=== PATIENT | male | born 1985 | race Caucasian/White ===

== ENCOUNTER 2017-06-02 23:55 | Emergency (ER) | payer BC ==
[~2017-06-02 23:55] MED LIST: CEP500 PO; FAM20 PO; IBU600 PO; KET10 PO; LOR5/325 PO; OND4 PO; PER PO; TAM4 PO; [UNRECOGNIZED DRUG - CODE] PO
--- NOTE | 2017-06-02 23:57 | ER Report ---
History and Physical Time Seen By MD: 23:57 HPI/ROS CHIEF COMPLAINT: Right flank pain HISTORY OF PRESENT ILLNESS: 31-year-old male presents ambulatory ER complaining of right flank pain since 9 PM. He's had severe nausea but no vomiting. He notes he's had some hematuria since noon yesterday. Patient has a distant history of kidney stones, status post cystoscopy by Dr. Rahman in 2012. He's done relatively well over the last 4 years. Patient notes no fevers. REVIEW OF SYSTEMS: Respiratory: No cough, no dyspnea. Cardiovascular: No chest pain, no palpitations. Gastrointestinal: As above Musculoskeletal: As above Allergies: Coded Allergies: azithromycin (Verified Allergy, Unknown, 06/03/17) Home Meds Active Scripts Tamsulosin Hcl (FLOMAX) 0.4 Mg Cap.er.24h, 0.4 MG PO QHS for ureteral relaxation , #20 CAP Prov:CIRA REYEZ DO 06/03/17 Ondansetron (ZOFRAN ODT) 4 Mg Tab.rapdis, 4 MG PO every 6 hours Y for NAUSEA/ VOMITING, #15 TAB TAKE 1 TABLET BY MOUTH EVERY 12 HOURS Prov:CIRA REYEZ DO 06/03/17 Oxycodone Hcl/Acetaminophen (PERCOCET 5-325 MG TABLET) 1 Each Tablet, 1-2 EACH PO Q4-6H Y for PAIN, #20 Prov:CIRA REYEZ 06/03/17 Discontinued Reported Medications Cephalexin Monohydrate (Keflex) 500 Mg Cap, 500 MG PO TID, #30 05/04/12 Ibuprofen (Motrin) 600 Mg Tab, 600 MG PO TID Y, #50 05/04/12 Famotidine (Pepcid) 20 Mg Tab, 20 MG PO BID, #20 05/04/12 Acetaminophen/Hydrocodone (Lortab 5/325 Mg) 5 Mg/325 Mg Tab, 1 - 2 TAB PO Q4-6H Y, #30 05/04/12 Sodium Bicarbonate (Sodium Bicarbonate) 650 Mg Tab, 650 MG PO QID, #120 05/04/12 Reviewed Nurses Notes: Yes Old Medical Records Reviewed: Yes Hx Substance Use Disorder: No Hx Alcohol Use: No Constitutional Vital Sign - Last 24 Hours 06/02/17 06/03/17 06/03/17 06/03/17 23:55 00:01 00:01 00:03 Temp 99.6 Pulse ??? 78 Resp 18 B/P (MAP) 158/112 141/131 (134) 158/112 (127) Pulse Ox 97 O2 Delivery Room Air 06/03/17 06/03/17 06/03/17 06/03/17 00:10 00:25 00:40 00:55 Pulse 74 ??? 85 ??? Pulse Ox 97 96 94 06/03/17 06/03/17 06/03/17 06/03/17 01:00 01:15 01:45 02:00 Pulse 91 100 91 94 Pulse Ox 95 92 94 92 06/03/17 06/03/17 02:13 02:15 Pulse ??? B/P (MAP) 145/95 (112) Physical Exam Vital signs stable, fever 99.6, pulse ox normal General Appearance: The patient is alert, has no immediate need for airway protection and no current signs of toxicity. Moderate distress Eyes: Pupils equal and round no injection. Respiratory: Chest is non tender, lungs are clear to auscultation. Cardiac: regular rate and rhythm Gastrointestinal: Abdomen is soft and non tender, no masses, bowel sounds normal. Positive right CVA tenderness Musculoskeletal: Neck: Neck is supple and non tender. Extremities have full range of motion and are non tender. Skin: No rashes or lesions. DIFFERENTIAL DIAGNOSIS: After history and physical exam differential diagnosis was considered for flank pain including but not limited to musculoskeletal causes, kidney stone, pyelonephritis, shingles, and intra-abdominal causes such as diverticulitis and appendicitis. Medical Decision Making Data Points Result Diagram: 06/03/17 0006 06/03/17 0006 Laboratory Hematology Test 06/03/17 00:05 06/03/17 00:06 Urine Color Yellow Urine Clarity Slightly-cloudy Urine pH 6.0 pH (4.8-9.5) Urine Specific Deale 1.027 Urine Protein 100 mg/dL (NEGATIVE) Urine Glucose (UA) Negative mg/dL (NEGATIVE) Urine Ketones Trace mg/dL (NEGATIVE) Urine Blood Large (NEGATIVE) Urine Nitrite Negative (NEGATIVE) Urine Bilirubin Negative (NEGATIVE) Urine Urobilinogen Negative mg/dL (0.2-1.9) Urine Leukocyte Esterase Negative (NEGATIVE) Urine RBC 730 /HPF (0-2/HPF) Urine WBC 1 /HPF (0-5/HPF) Urine Squamous Epithelial Cells None /LPF (</=FEW) Urine Amorphous Crystals Few /HPF Urine Bacteria Negative /HPF (NONE-FEW) Urine Mucus Few /HPF (NONE-FEW) Red Blood Count 5.23 M/uL (4.00-5.60) Mean Corpuscular Volume 91.8 fL (80.0-96.0) Mean Corpuscular Hemoglobin 31.8 pg (26.0-33.0) Mean Corpuscular Hemoglobin Concent 34.6 g/dL (32.0-36.0) Red Cell Distribution Width 14.7 % (11.5-14.5) Mean Platelet Volume 8.3 fL (7.2-11.1) Neutrophils (%) (Auto) 78.0 % (39.4-72.5) Lymphocytes (%) (Auto) 13.2 % (17.6-49.6) Monocytes (%) (Auto) 7.0 % (4.1-12.4) Eosinophils (%) (Auto) 1.1 % (0.4-6.7) Basophils (%) (Auto) 0.7 % (0.3-1.4) Nucleated RBC Relative Count (auto) 0.1 /100WBC Neutrophils # (Auto) 7.0 K/uL (2.0-7.4) Lymphocytes # (Auto) 1.2 K/uL (1.3-3.6) Monocytes # (Auto) 0.6 K/uL (0.3-1.0) Eosinophils # (Auto) 0.1 K/uL (0.0-0.5) Basophils # (Auto) 0.1 K/uL (0.0-0.1) Nucleated RBC Absolute Count (auto) 0.01 K/uL Sodium Level 136 mmol/L (137-145) Potassium Level 3.7 mmol/L (3.5-5.0) Chloride Level 101 mmol/L (98-107) Carbon Dioxide Level 20 mmol/L (22-30) Blood Urea Nitrogen 14 mg/dl (9-21) Creatinine 1.00 mg/dl (0.66-1.25) Glomerular Filtration Rate Calc > 60.0 Random Glucose 105 mg/dl (75-110) Calcium Level 9.4 mg/dl (8.4-10.2) Total Bilirubin 1.0 mg/dl (0.2-1.3) Aspartate Amino Transf (AST/SGOT) 27 U/L (0-35) Alanine Aminotransferase (ALT/SGPT) 44 U/L (0-56) Alkaline Phosphatase 83 U/L (0-126) Total Protein 7.8 gm/dl (6.3-8.2) Albumin 4.7 g/dl (3.5-5.0) Amylase Level 93 U/L (0-110) Lipase 111 U/L (23-300) Chemistry Test 06/03/17 00:05 06/03/17 00:06 Urine Color Yellow Urine Clarity Slightly-cloudy Urine pH 6.0 pH (4.8-9.5) Urine Specific Deale 1.027 Urine Protein 100 mg/dL (NEGATIVE) Urine Glucose (UA) Negative mg/dL (NEGATIVE) Urine Ketones Trace mg/dL (NEGATIVE) Urine Blood Large (NEGATIVE) Urine Nitrite Negative (NEGATIVE) Urine Bilirubin Negative (NEGATIVE) Urine Urobilinogen Negative mg/dL (0.2-1.9) Urine Leukocyte Esterase Negative (NEGATIVE) Urine RBC 730 /HPF (0-2/HPF) Urine WBC 1 /HPF (0-5/HPF) Urine Squamous Epithelial Cells None /LPF (</=FEW) Urine Amorphous Crystals Few /HPF Urine Bacteria Negative /HPF (NONE-FEW) Urine Mucus Few /HPF (NONE-FEW) White Blood Count 9.0 k/uL (4.5-11.0) Red Blood Count 5.23 M/uL (4.00-5.60) Hemoglobin 16.6 g/dL (14.0-18.0) Hematocrit 48.0 % (42.0-52.0) Mean Corpuscular Volume 91.8 fL (80.0-96.0) Mean Corpuscular Hemoglobin 31.8 pg (26.0-33.0) Mean Corpuscular Hemoglobin Concent 34.6 g/dL (32.0-36.0) Red Cell Distribution Width 14.7 % (11.5-14.5) Platelet Count 238 K/uL (150-450) Mean Platelet Volume 8.3 fL (7.2-11.1) Neutrophils (%) (Auto) 78.0 % (39.4-72.5) Lymphocytes (%) (Auto) 13.2 % (17.6-49.6) Monocytes (%) (Auto) 7.0 % (4.1-12.4) Eosinophils (%) (Auto) 1.1 % (0.4-6.7) Basophils (%) (Auto) 0.7 % (0.3-1.4) Nucleated RBC Relative Count (auto) 0.1 /100WBC Neutrophils # (Auto) 7.0 K/uL (2.0-7.4) Lymphocytes # (Auto) 1.2 K/uL (1.3-3.6) Monocytes # (Auto) 0.6 K/uL (0.3-1.0) Eosinophils # (Auto) 0.1 K/uL (0.0-0.5) Basophils # (Auto) 0.1 K/uL (0.0-0.1) Nucleated RBC Absolute Count (auto) 0.01 K/uL Glomerular Filtration Rate Calc > 60.0 Calcium Level 9.4 mg/dl (8.4-10.2) Total Bilirubin 1.0 mg/dl (0.2-1.3) Aspartate Amino Transf (AST/SGOT) 27 U/L (0-35) Alanine Aminotransferase (ALT/SGPT) 44 U/L (0-56) Alkaline Phosphatase 83 U/L (0-126) Total Protein 7.8 gm/dl (6.3-8.2) Albumin 4.7 g/dl (3.5-5.0) Amylase Level 93 U/L (0-110) Lipase 111 U/L (23-300) Urinalysis Test 06/03/17 00:05 Urine Color Yellow Urine Clarity Slightly-cloudy Urine pH 6.0 pH (4.8-9.5) Urine Specific Deale 1.027 Urine Protein 100 mg/dL (NEGATIVE) Urine Glucose (UA) Negative mg/dL (NEGATIVE) Urine Ketones Trace mg/dL (NEGATIVE) Urine Blood Large (NEGATIVE) Urine Nitrite Negative (NEGATIVE) Urine Bilirubin Negative (NEGATIVE) Urine Urobilinogen Negative mg/dL (0.2-1.9) Urine Leukocyte Esterase Negative (NEGATIVE) Urine RBC 730 /HPF (0-2/HPF) Urine WBC 1 /HPF (0-5/HPF) Urine Squamous Epithelial Cells None /LPF (</=FEW) Urine Amorphous Crystals Few /HPF Urine Bacteria Negative /HPF (NONE-FEW) Urine Mucus Few /HPF (NONE-FEW) EKG/Imaging Imaging Results: CT scan of the abdomen and pelvis without contrast was obtained. The results of the study are CT of the abdomen and pelvis without contrast: Indication: Right flank pain. Technique: Helical CT was performed through the abdomen and pelvis without contrast. Multiplanar reconstructions are reviewed. There is streak artifact related to the presence of spinal fusion rods. One of the following dose optimization techniques was utilized in the performance of this exam: Automated exposure control; adjustment of the mA and/ or kV according to the patient's size; or use of an iterative reconstruction technique. Specific details can be referenced in the facility's radiology CT exam operational policy. Comparison: None. Lower lung mccollum: No focal parenchymal or pleural abnormality is identified. Liver: Normal in size, shape, and density. Gallbladder/biliary tree: The gallbladder is normal in size and homogeneous in density. The bile ducts are normal in caliber. Pancreas: Normal in size, shape, and density. Spleen: Normal in size, shape, and density. Adrenal glands: Within normal limits. Kidneys/urinary bladder: There is a 3 mm calculus at the right ureterovesical junction. There is mild obstruction of the right ureter. There are additional calcifications in the bladder lumen near the right ureterovesical junction, suggesting the presence of recently passed calculi. There appears to be a tiny nonobstructing calculus at the lower pole of the right kidney. The right kidney is otherwise unremarkable. There is a tiny nonobstructing calculus in the mid left kidney. The left kidney is otherwise unremarkable. There are no signs of left ureteral calculus or obstruction. The urinary bladder is otherwise unremarkable. Intestinal structures: Unremarkable, as visualized. There are no signs of obstruction or focal inflammatory changes. Pelvis: Unremarkable. Aorta and vascular structures: Within normal limits. Ascites or fluid collections: None seen. Skeletal structures: Spinal fusion rods are present in the lower thoracic spine and upper lumbar spine. There is moderate scoliosis in the lower thoracic spine. No acute skeletal deformity is clearly identified. Impression: There is a 3 mm obstructing calculus at the right ureterovesical junction. There also appear to be some recently passed calculi in the bladder lumen. There are tiny nonobstructing calculi in both kidneys. The study was read by the radiologist. I viewed the images myself on the PACS system. ED Course/Re-evaluation Clinical Indication for ER IV: Hydration, IV Access ED Course Patient was admitted to an examination room. H&P was done. The differential diagnoses was considered. On clinical examination. Patient presents with right flank pain with a history of stones. He has clinical presentation of acute kidney stone. His urine shows hematuria. Patient's treated with IV player. He is given Zofran, Toradol, Dilaudid. His urinalysis returns with Vasile scopic hematuria. A CT scan is ordered. It shows a 3 mm stone on the right. There is also a recently passed stone noted in the bladder. Patient's discharged home on Percocet and Phenergan. He is advised to follow up with Dr. Rahman who did his cystoscopy 4 years ago. Decision to Disposition Date: Jun 03, 2017 Decision to Disposition Time: 02:08 Depart Departure Latest Vital Signs Vital Signs Date Time Temp Pulse Resp B/P (MAP) Pulse Ox O2 Delivery O2 Flow Rate FiO2 06/03/17 02:15 ??? 06/03/17 02:13 145/95 (112) 06/03/17 02:00 92 06/03/17 00:01 99.6 18 Room Air Impression: Primary Impression: Renal colic on right side Additional Impression: Nephrolithiasis Condition: Improved Disposition: HOME OR SELF-CARE Referrals: SRINI BARBOSA MD (PCP) OMER RAHMAN MD [facility] Tamsulosin Hcl (FLOMAX) 0.4 Mg Cap.er.24h 0.4 MG PO QHS for ureteral relaxation, #20 CAP Prov: CIRA REYEZ DO 06/03/17 Ondansetron (ZOFRAN ODT) 4 Mg Tab.rapdis 4 MG PO every 6 hours Y for NAUSEA/VOMITING, #15 TAB TAKE 1 TABLET BY MOUTH EVERY 12 HOURS Prov: CIRA REYEZ DO 06/03/17 Oxycodone Hcl/Acetaminophen (PERCOCET 5-325 MG TABLET) 1 Each Tablet 1-2 EACH PO Q4-6H Y for PAIN, #20 Prov: CIRA REYEZ DO 06/03/17 Patient Instructions: Kidney Stones (ED) Additional Instructions: Take ibuprofen 200 mg 3 tablets 3 times daily with food Drink plenty of fluids Use prescriptions to control nausea, vomiting or pain Follow-up with Dr. Rahman on Monday or Monday if unimproved Return to the ER for any worsening over the weekend Problem Qualifiers CIRA REYEZ DO Jun 02, 2017 23:57
[2017-06-03] MEDS ORDERED: HYDROmorphone(ER ONLY) 1 MG/ML IVP ONE ×2 (00:05→02:00)
[2017-06-03] MEDS ORDERED: NS(*) 0.9% 1000 ML BAG 1,000 ML IV ONE (00:05)
[2017-06-03] MEDS ORDERED: ONDANSETRON 4 MG/2 ML VIAL IVP ONE (00:05)
[2017-06-03] MEDS ORDERED: KETOROLAC 30 MG/ML VIAL IVP ONE (00:05)
[2017-06-03 00:21] LABS: PLATELET COUNT, AUTOMATED 238 K/uL (150-450)
--- NOTE | 2017-06-03 01:04 | RADIOLOGY IMAGING REPORT ---
FACILITY: [facility] PATIENT NAME: Tristian Vargas : 1985 MR: [id number] V: [id number] EXAM DATE: ORDERING PHYSICIAN: CIRA REYEZ TECHNOLOGIST: Location: [facility] [place] Patient: Tristian Vargas : 1985 Visit/Account:[id number] Date of Sevice: 06/03/2017 CT of the abdomen and pelvis without contrast: Indication: Right flank pain. Technique: Helical CT was performed through the abdomen and pelvis without contrast. Multiplanar rec onstructions are reviewed. There is streak artifact related to the presence of spinal fusion rods. One of the following dose optimization techniques was utilized in the performance of this exam: Autom ated exposure control; adjustment of the mA and/or kV according to the patient's size; or use of an i terative reconstruction technique. Specific details can be referenced in the facility's radiology C T exam operational policy. Comparison: None. Lower lung mccollum: No focal parenchymal or pleural abnormality is identified. Liver: Normal in size, shape, and density. Gallbladder/biliary tree: The gallbladder is normal in size and homogeneous in density. The bile duct s are normal in caliber. Pancreas: Normal in size, shape, and density. Spleen: Normal in size, shape, and density. Adrenal glands: Within normal limits. Kidneys/urinary bladder: There is a 3 mm calculus at the right ureterovesical junction. There is mild obstruction of the right ureter. There are additional calcifications in the bladder lumen near the r ight ureterovesical junction, suggesting the presence of recently passed calculi. There appears to be a tiny nonobstructing calculus at the lower pole of the right kidney. The right kidney is otherwise unremarkable. There is a tiny nonobstructing calculus in the mid left kidney. The left kidney is otherwise unremark able. There are no signs of left ureteral calculus or obstruction. The urinary bladder is otherwise unremarkable. Intestinal structures: Unremarkable, as visualized. There are no signs of obstruction or focal inflam matory changes. Pelvis: Unremarkable. Aorta and vascular structures: Within normal limits. Ascites or fluid collections: None seen. Skeletal structures: Spinal fusion rods are present in the lower thoracic spine and upper lumbar spin e. There is moderate scoliosis in the lower thoracic spine. No acute skeletal deformity is clearly id entified. Impression: There is a 3 mm obstructing calculus at the right ureterovesical junction. There also birgit ear to be some recently passed calculi in the bladder lumen. There are tiny nonobstructing calculi in both kidneys. Report Dictated By: Nathanael Berumen MD at 06/03/2017 12:51 AM Report E-Signed By: Nathanael Berumen MD at 06/03/2017 12:59 AM WSN:[id number]
[2017-06-03] MEDS ORDERED: PROMETHAZINE HCL 25 MG TAB TH 2 TAB/BOTTLE PO ONE (02:00)
[2017-06-03] MEDS ORDERED: oxyCODONE/ACETAMIN 5/325MG TH 2 TAB/BOTTLE PO ONE (02:00)
[2017-06-03 02:13] VITALS: BP 145/95
[2017-06-03] MEDS ORDERED: TAMS0.4C25 PO (02:13)
[2017-06-03] MEDS ORDERED: ONDA4TAB PO (02:13)
[2017-06-03] MEDS ORDERED: OXYC-865 PO (02:13)
== END 2017-06-03 02:27 | disposition home or self-care (01) ==
LOC: ER 23:58
DX: N23 Unspecified renal colic (principal); N20.0 Calculus of kidney
CPT/HCPCS: 74176; 81001; 82150; 83690; 85025; 99284; J1170; J1885; J2405; J7030; 82040; 82247; 82310; 82374; 82435; 82565; 82947; 84075; 84132; 84155; 84295; 84450; 84460; 84520; 96361; 96374; 96375; 96376

== ENCOUNTER 2017-06-12 00:19 | Day surgery (SDC) | payer BC ==
--- NOTE | 2017-06-07 18:39 | HISTORY AND PHYSICAL ---
DATE OF ADMISSION: June 12, 2017 CHIEF COMPLAINT Right ureteral stone and bladder stones. HISTORY OF PRESENT ILLNESS Patient is a 31-year-old white male with a history of kidney stones who presented to the emergency room on June 02, complaining of right flank pain. At that time a CT scan was performed which revealed a 3 x 3 mm calcification in the distal ureter just outside the detrusor, with some moderate hydronephrosis proximally. He was also noted to have what appeared to be a 4 x 2 mm calcification in the lumen of the bladder on the right side with a few small 1 mm fragments surrounding this. He was noted to have a 2 mm stone in the right lower pole and two 2 mm stones in the left lower pole of his kidneys. He was seen in the Urology Clinic on June 06, stating that he still had not passed his stones. He had had some colicky flank pain approximately 12 hours before his office visit, however, this had mostly resolved. Of note, the patient had a similar appearance of kidney stones in 2012. At that time he underwent bilateral extracorporeal shock wave lithotripsy with manipulation of right ureteral stone, and also removal of some small bladder stones by Dr. Salazar. Patient was given an approximately 80% chance of passing this ureteral calculus , however, it is more concerning that he has had recurrent bladder stones since his last procedure. The patient has been straining his urine and has not incidentally passed either stone. He is now being brought to the operating room for planned anesthetic cystoscopy, removal of bladder stones, with possible right ureteroscopy. PAST MEDICAL HISTORY * Kidney stones. * Spinal disease. PAST SURGICAL HISTORY * Lithotripsy, 2004. * Bilateral extracorporeal shock wave lithotripsy with removal of bladder calculi, April 2012. * Spinal fusion, 1995. ALLERGIES ERYTHROMYCIN. CURRENT MEDICATIONS * Flomax. * Hydrocodone. FAMILY HISTORY Negative. REVIEW OF SYSTEMS Patient denies chest pain, shortness of breath, nausea, vomiting, fevers, chills , gross hematuria, change in bowel habits, chronic headaches or bleeding disorder. PHYSICAL EXAMINATION GENERAL: Patient is a well-developed, well-nourished white male in no acute distress. HEENT: Normocephalic, atraumatic. CHEST: Clear to auscultation bilaterally. CARDIOVASCULAR: Regular rate and rhythm. ABDOMEN: Soft, nontender. No masses are palpated. GENITOURINARY: Exam is deferred to the operating room. EXTREMITIES: Without clubbing, cyanosis or edema. NEUROLOGIC: Exam is nonfocal. IMPRESSION A 31-year-old white male with a recurrent history of kidney stones, now with a 3 mm distal right ureteral stone as well as a 4 mm bladder stone with smaller surrounding fragments. PLAN We will perform anesthetic cystoscopy, removal of bladder stones with possible right ureteroscopy as indicated. ALEXANDRA
[~2017-06-12] VITALS: Ht 160 cm; Wt 54.0 kg
[~2017-06-12 00:19] MED LIST changes: +ONDA4TAB PO; +OXYC-865 PO; +TAMS0.4C25 PO
[2017-06-12 06:28] VITALS: BP 145/95
[2017-06-12] MEDS ORDERED: ceFAZolin(*) 1 GM VIAL 1 GM in NS(*) 0.9% 100 ML ADDVANT BAG 100 ML IVPB ONE (06:30)
[2017-06-12] MEDS ORDERED: MIDAZOLAM 2 MG/2 ML VIAL IVP PRN (06:30)
[2017-06-12] MEDS ORDERED: NORMOSOL R SOLN(*) 1000 ML BAG 1,000 ML IV PRN (06:30)
[2017-06-12] MEDS ORDERED: LIDOCAINE/SOD BICARB 8.4% SYR ID ONE (06:30)
[2017-06-12] MEDS ORDERED: FAMOTIDINE 20 MG TAB PO ONE (06:30)
[2017-06-12] MEDS ORDERED: IOPAMIDOL-200 50 ML VIAL IS ONE (06:52)
[2017-06-12] MEDS ORDERED: BELLADONNA ALK/OPIUM 60MG SUPP PR ONE (06:52)
[2017-06-12] MEDS ORDERED: DEXAMETHASONE SOD 4 MG/ML VIAL ONE (07:05)
[2017-06-12] MEDS ORDERED: PROPOFOL EMUL(*) 10MG/ML 20 ML 20 ML ONE (07:05)
[2017-06-12] MEDS ORDERED: fentaNYL CITR 100 MCG/2 ML AMP ONE ×2 (07:05→09:25)
[2017-06-12] MEDS ORDERED: LIDOCAINE MPF 1% 5 ML VIAL ONE (07:05)
[2017-06-12] MEDS ORDERED: ONDANSETRON 4 MG/2 ML VIAL ONE (07:05)
[2017-06-12] MEDS ORDERED: fentaNYL CITR 100 MCG/2 ML AMP IVP ONE (07:15)
[2017-06-12] MEDS ORDERED: KETAMINE HCL 200 MG/20 ML MDV ONE (07:15)
[2017-06-12] MEDS ORDERED: MEPERIDINE 50 MG/ML SYR ONE (09:06)
[2017-06-12] MEDS ORDERED: HYDR-385 PO (09:17)
[2017-06-12] MEDS ORDERED: DOCU-416 PO (09:18)
[2017-06-12] MEDS ORDERED: TAMS0.4C25 PO (09:20)
[2017-06-12] MEDS ORDERED: PHEN200T32 PO (09:20)
[2017-06-12] MEDS ORDERED: OXYB10TA21 PO (09:23)
[2017-06-12] MEDS ORDERED: IBUP600T22 PO (09:24)
--- NOTE | 2017-06-12 10:00 | OPERATIVE REPORT 1 ---
EVENT DATE: June 12, 2017 SURGEON: Tristen Fitzgerald MD ANESTHESIOLOGIST: Marcus Camara MD ANESTHESIA: General. PREOPERATIVE DIAGNOSIS 1. Right distal ureteral calculus measuring 3 x 3. 2. Several bladder stones ranging from 4 to 1 mm numbering approximately 15. POSTOPERATIVE DIAGNOSIS 1. Right distal ureteral calculus measuring 3 x 3. 2. Several bladder stones ranging from 4 to 1 mm numbering approximately 15. PROCEDURE PERFORMED 1. Cystoscopy. 2. Grasping and removal of multiple small bladder calculi. 3. Right retrograde pyelogram. 4. Right semirigid and flexible ureteroscopy with laser fragmentation of stone and grasping and removal of stone fragments. 5. Right double J ureteral stent placement. ESTIMATED BLOOD LOSS Minimal. IV FLUIDS Crystalloid. DRAINS 6 Cypriot x 24 cm Contour stent on right with string attached. PATHOLOGY Stone fragments for analysis. COMPLICATIONS None. CONDITION Patient taken to recovery room awake and in stable condition. STATEMENT OF MEDICAL NECESSITY Patient is a 31-year-old white male with a history of kidney stones since 2004 who recently presented to the emergency room on June 02, 2017 with right flank pain. At that time, a CT scan was performed. He was noted to have a 3 x 3 mm distal right ureteral calculus in addition to having several smaller stones in the bladder measuring 2-4 mm in size. Patient was having intermittent renal colic, and had been started on oral narcotics and Flomax. He was seen in the urology clinic on June 06, and was still having intermittent pain. These films were reviewed and discussed, and he has elected to undergo urologic intervention with ureteroscopy and removal of his small bladder calculi. The patient was continued on Flomax and narcotics, and has not passed his stone with conservative treatment. He is now being brought to the operating room for intervention. DESCRIPTION OF OPERATION PERFORMED Patient was brought to the operating room. After general anesthetic was obtained, he was placed in the dorsal lithotomy position and prepped and draped in usual sterile manner. Anesthetic cystoscopy was performed with the 21- Cypriot rigid Shane sheath and the 30 and 70 degree lenses. He had a normal- appearing pendulous, bulbar and membranous urethra. Upon entering his bladder, he had smooth bladder mucosa with no significant trabeculation. He had slit- like ureteral orifices. The right ureteral orifice was somewhat full in shape, consistent with intermural stone. He was noted to have several small free- floating stones in the dependent portion of the bladder measuring 4 to 1 mm in size, and they numbered 15-20 in number. At this point, the rigid grasping forceps were used to engage the small stones and remove them through the cystoscopic sheath. After the bladder stones were grasped and removed, attention was directed toward the right ureter. A right retrograde pyelogram was performed using an 8 Cypriot cone-tip catheter, injecting 7 mL of contrast material in a retrograde manner. He had a distal filling of the right ureter with a small filling defect just at the junction of the ureter to the bladder consistent with his stone. The more proximal ureter up to the level of the vessels was fairly normal caliber, and above this he had a poor filling of the rest of the system. By my intraoperative interpretation, this retrograde pyelogram was consistent with a right distal ureteral stone. At this point, ureteroscopy was performed on the right side using the Shane semi-rigid scope. First a 0.035 sensor wire was advanced up the right ureter in retrograde manner with fluoroscopic imaging as guidance. This wire was then used to place an 8- 10 dilating system, and a second wire was placed alongside the first wire inside the 10 sheath. The 10 sheath was removed. One wire was secured to the drapes as a safety wire, and the next wire was used as a working wire and was back loaded into the semi-rigid scope. The scope was advanced up over the wire under direct vision with the aid of the camera. The distal ureter appeared normal after advancing the scope up approximately 3-4 cm. A 3 x 3 mm yellow stone with an irregular surface was encountered. The triceps grasping forceps were used to engage the stone, however, it was too large to be pulled out alongside the safety wire. Therefore the holmium laser fiber was then used to engage the stone to fragment it into several smaller parts. The stone fragmented into approximately 4-5 smaller pieces, the largest measuring approximately 2 mm. Three of these fragments were individually grasped and removed into the bladder. At this point, the ureteroscope was then reintroduced , and ureteroscopy up to the level of the vessels was performed. No further fragments could be identified up to this point. A sensor wire was then advanced in the lumen of the semi-rigid scope to the kidney. The ureteroscope was then removed and replaced with the [employer] flexible Shane ureteroscope. This scope was advanced up over this working wire with the aid of fluoroscopy to the upper pole calyx. The working wire was removed, and flexible renoureteroscopy was then performed.. There was a small amount of blood clot in the renal pelvis , likely from iatrogenic causes from the wire. There was no active bleeding noted. The upper, mid and lower pole calices were inspected. No stones could be identified in the upper and mid poles. There was a 1 mm stone-like plaque in the lower pole. Pull out flexible ureteroscopy was then performed. The ureter was thoroughly inspected. There was a 2 mm fragment in the mid ureter. This was grasped with the triceps grasping forceps, and both the stone and ureteroscope were removed under direct vision. The stone was dropped in the patient's bladder. At this point, the patient's bladder was Elliked free of the small fragments. The safety wire was then back loaded into the cystoscope and used to place a 6 Cypriot x 24 cm Contour stent. The wire was left attached to the distal end, and was attached to the penile shaft with a Tegaderm. The bladder was drained through the cystoscopic sheath, and a B and O suppository was given per rectally. The patient was awakened in the operating room and taken to the recovery area in stable condition. The plan will be to allow the patient to be discharged home today on Flomax, Colace, [place], Ditropan XL, Pyridium, and Colace. We will plan to see him in the clinic in 2-3 days to remove his stent via the string. ALEXANDRA
[2017-06-12 10:10] VITALS: BP 142/94
[2017-06-12 10:30] VITALS: BP 155/94
[2017-06-12 10:36] VITALS: BP 138/105
[2017-06-12 10:38] VITALS: BP 142/107
[2017-06-12] MEDS ORDERED: APAP/HYDROCODONE 325/5 TAB ONE (10:54)
--- NOTE | 2017-06-12 11:33 | RADIOLOGY IMAGING REPORT ---
[place] [facility] [place] NAME: Tristian Vargas : 1985 MR: [id number] V: [id number] EXAM DATE: ORDERING PHYSICIAN: FEDE HUGGINS TECHNOLOGIST: Location: [facility] Patient: Tristian Vargas : 1985 Visit/Account:[id number] Date of Sevice: 06/12/2017 Examination: Intraoperative images for retrograde pyelogram HISTORY: Right ureteral stone. Bladder stone. Retrograde. FINDINGS: 36 intraoperative fluoroscopic spot images are obtained. Fluoroscopy time measured 32 seco nds. On the first image, a cystoscope is in place. On the second image, there is contrast seen within the distal right ureter. This is seen on multiple additional images. Beginning on the fifth image, a w lesly overlies expected location of the mid and distal right ureter. This is advanced into the expecte d region of the renal pelvis. There is subsequent ureteroscope placement. On the final images, a do uble-J nephroureteral stent has been placed which appears appropriately positioned. No calcification s seen along the course of the stent. IMPRESSION: 1. Right-sided retrograde pyelogram findings as detailed above with placement of nephroureteral sten t. Correlate with intraoperative procedure and findings. Report Dictated By: Damon Mccurdy at 06/12/2017 11:23 AM Report E-Signed By: Damon Mccurdy at 06/12/2017 11:29 AM WSN:[email or web address]
== END 2017-06-12 10:10 | disposition home or self-care (01) ==
LOC: OR 00:19
PROVIDERS: ATTEND Urology
DX: N20.1 Calculus of ureter (principal); N21.0 Calculus in bladder
CPT/HCPCS: 52356; 74420; 82365; 88300; J0690; J1100; J2001; J2175; J2250; J2405; J2704; J3010; J3490; J7050; Q9966; C1758; C1769; C1894; C2617

== ENCOUNTER → 2017-08-22 | Outpatient (CLI) | payer BC ==
[~2017-08-22] MED LIST changes: +DOCU-416 PO; +HYDR-385 PO; +IBUP600T22 PO; +OXYB10TA21 PO; +PHEN200T32 PO
--- NOTE | 2017-08-22 16:34 | RADIOLOGY IMAGING REPORT ---
[place] [facility] [place] Tristian Vargas : 1985 MR: [id number] V: [id number] EXAM DATE: ORDERING PHYSICIAN: FEDE HUGGINS TECHNOLOGIST[place] [facility] [place]istian Vargas : 1985 Visit/Account:[id number] Date of Sevice: 08/22/2017 KIDNEYS EXAMINATION: Renal ultrasound. History: Kidney stones x15 years, lithotripsy of the right kidney with stent placement COMPARISON STUDIES: CT June 03, 2017 FINDINGS: Kidneys: Right kidney- 10.3 x 5.4 x 5.2 cm Left kidney- 10.3 x 5.1 x 5.2 cm Uniform and symmetric blood flow in each kidney by Doppler ultrasound. Hydronephrosis: none Resistive index on the right 0.56 on the left 0.60 Bladder: Prevoid volume 305 mL. Post void residual 83 mL. Bilateral ureteral jets are present Abdominal aorta and IVC: Aorta and IVC are patent by Doppler ultrasound. IMPRESSION: Post void bladder residual 83 mL Kidneys otherwise appear unremarkable sonographically Report Dictated By: Echo Corrales MD at 08/22/2017 4:28 PM Report E-Signed By: Echo Corrales MD at 08/22/2017 4:30 PM WSN:[email or web address]
== END ==
LOC: US 02:08
PROVIDERS: ATTEND Urology
DX: R33.9 Retention of urine, unspecified (principal)
CPT/HCPCS: 76705